=== PATIENT | female | born 1995 | race Hispanic/Latino ===

== ENCOUNTER 2017-11-28 10:12 | Emergency (ER) | payer SELFPAY ==
[2017-11-28 10:41] VITALS: BP 126/83; PULSE 104; RESP 20; TEMP 98.1; O2SAT 98
[2017-11-28] MEDS ORDERED: Sodium Chloride 0.9% 1,000 ML IV ONE (11:30)
[2017-11-28 12:00] LABS: BASO % 0.5 % (0.0-2.0); EOS # 0.1 K/uL (0.0-0.7); EOS % 1.1 % (0.0-4.0); HEMOGLOBIN 12.8 g/dL (11.0-16.0); LYMPH % 20.5 % (20.0-40.0); MEAN CELL VOLUME 90.2 fL (81.0-99.0); MEAN CORPUSCULAR HEMOGLOBIN 32.4 pg (27.0-31.0); MEAN CORPUSCULAR HGB CONC 35.9 g/dL (33.0-37.0); MONO # 0.4 K/uL (0.0-0.8); NEUT # 3.6 K/uL (1.8-7.0); NEUT % 70.9 % (50.0-75.0); NRBC % 0.1 % (0.0-2.0); RBC 3.94 Mil/uL (3.80-5.20); RED CELL DISTRIBUTION WIDTH 12.9 % (11.5-14.5)
[2017-11-28 12:03] LABS: HCG,QUALITATIVE URINE NEGATIVE (NEGATIVE)
[2017-11-28] MEDS ORDERED: Sodium Chloride 0.9% 1,000 ML ONE (12:04)
[2017-11-28 12:14] LABS: SQUAMOUS EPITHIAL < 1 /hpf (0-5); URINE CALCIUM OXALATE CRYSTALS MOD /hpf (<OCC)
[2017-11-28 12:17] LABS: ALB/GLOB RATIO 1.4 (1.0-2.1); ALBUMIN 4.3 g/dL (3.5-5.0); ALT/SGPT 22 U/L (9-52); AST/SGOT 17 U/L (14-36); BLOOD UREA NITROGEN 7 mg/dL (7-17); CALCIUM 9.5 mg/dl (8.6-10.4); GFR AFRICAN-AMERICAN > 60; GFR NON-AFRICAN AMERICAN > 60; LIPASE 190 U/L (23-300)
[2017-11-28 12:18] LABS: URINE BILIRUBIN SMALL (NEGATIVE); URINE BLOOD NEGATIVE (NEGATIVE); URINE CLARITY Clear (Clear); URINE COLOR YELLOW (YELLOW); URINE GLUCOSE (UA) NEGATIVE (Normal)
[2017-11-28 12:19] LABS: URINE LEUKOCYTE ESTERASE NEGATIVE Leu/uL (Negative); URINE PROTEIN TRACE mg/dL (NEGATIVE)
[2017-11-28 12:47] LABS: BARBITURATES, UR NEGATIVE (NEGATIVE); BENZODIAZEPINES, UR NEGATIVE (NEGATIVE); OPIATES, UR NEGATIVE (NEGATIVE); PHENCYCLIDINE, UR NEGATIVE (NEGATIVE)
--- NOTE | 2017-11-28 13:39 | C.PDOC ---
History Of Present Illness 22 y/o female presents to the ER complaining of lower abdominal and pelvic pain which has been present on/off for the past 3 months. Patient states that the pain has become worse over the past few days and the pain is constant. Patient describes the pain as cramping and rates the pain 10/10. She reports that she is having trouble sitting and lying down because of the pain. Denies having fever, chills, nausea, vomiting, dysuria, and hematuria.Of note, patient is agitated, angry, and tearful. Time Seen by Provider: 11/28/17 11:19 Chief Complaint (Nursing): Abdominal Pain History Per: Patient History/Exam Limitations: no limitations Onset/Duration Of Symptoms: Days Current Symptoms Are (Timing): Still Present Severity: Moderate Past Medical History Reviewed: Historical Data, Nursing Documentation, Vital Signs Vital Signs: Last Vital Signs Temp 98.1 F 11/28/17 10:38 Pulse 104 H 11/28/17 10:38 Resp 20 11/28/17 10:38 BP 126/83 11/28/17 10:38 Pulse Ox 98 11/28/17 13:53 - Medical History PMH: Seizures Surgical History: No Surg Hx Family History: States: No Known Family Hx - Social History Hx Alcohol Use: No Hx Substance Use: No - Immunization History Hx Tetanus Toxoid Vaccination: No Hx Influenza Vaccination: No Hx Pneumococcal Vaccination: No Review Of Systems Except As Marked, All Systems Reviewed And Found Negative. Constitutional: Negative for: Fever, Chills Gastrointestinal: Positive for: Abdominal Pain. Negative for: Nausea, Vomiting Genitourinary: Positive for: Pelvic Pain. Negative for: Dysuria, Hematuria Physical Exam - Physical Exam Appears: Non-toxic, Other (very agitated, intermittently aggressive) Skin: Normal Color, Warm, Dry, No Rash Head: Atraumatic, Normacephalic Eye(s): bilateral: Normal Inspection Nose: Normal Oral Mucosa: Moist Neck: Supple Chest: Symmetrical Cardiovascular: Rhythm Regular Respiratory: Normal Breath Sounds, No Rales, No Rhonchi, No Wheezing Gastrointestinal/Abdominal: Soft, Tenderness (lower abdominal tenderness, suprapubic tenderness) Neurological/Psych: Oriented x3, Normal Speech ED Course And Treatment - Laboratory Results Result Diagrams: 11/28/17 11:52 11/28/17 11:52 O2 Sat by Pulse Oximetry: 98 (RA) Pulse Ox Interpretation: Normal Medical Decision Making Medical Decision Making: Plan: --Labs --UA --US - Pelvis --IV Fluids -- Toradol IV --Tylenol PO Updates: Patient is non-complaint and not cooperating with ER Staff. Patient ultimately allowed for bloodwork to be drawn. Patient was sent for US but she refused to cooperate with the US staff as she wanted her boyfriend to be with her in the US room. Patient eloped from the ER. Disposition - Disposition Disposition: ELOPEMENT - ER ONLY Disposition Time: 13:20 Condition: UNKNOWN Forms: Manga Corta (Singaporean) - Clinical Impression Clinical Impression: History of elopement from [facility] care facility - Scribe Statement The provider has reviewed the documentation as recorded by the Scribe Evangelista Bergeron Provider Attestation: All medical record entries made by the Scribe were at my direction and personally dictated by me. I have reviewed the chart and agree that the record accurately reflects my personal performance of the history, physical exam, medical decision making, and the department course for this patient. I have also personally directed, reviewed, and agree with the discharge instructions and disposition.
--- NOTE | 2017-11-28 15:07 | US ---
Pelvic ultrasound History: Pelvic pain. Comparison: None available. Technique: Real-time sonography was performed through the pelvis utilizing transvaginal technique. Findings: Urine test is negative. Uterus: 6.4 x 2.4 x 4.1 centimeters. Heterogeneous echotexture. Anteverted. Endometrium measures 5 millimeters. No significant amount of free fluid within the pelvic cul-de-sac. Right ovary: 2.3 x 1.9 x 2.8 centimeters. Normal flow. Left ovary: 2.3 x 1.8 x 2.2 centimeters. Normal flow. Impression: Unremarkable sonographic evaluation of the pelvis.
== END 2017-11-28 13:23 | disposition left against medical advice (07) ==
LOC: C.ER 10:12
DX: Z02.89 Encounter for other administrative examinations (principal); R10.2 Pelvic and perineal pain
CPT/HCPCS: 76830; 80053; 81001; 83690; 84703; 85025; 96361; 96374; 99284; G0480; J1885; J7040